=== PATIENT | female | born 1995 | race Caucasian/White ===

== ENCOUNTER 2016-10-30 14:18 | Emergency (ER) | payer OTHER ==
[~2016-10-30] VITALS: Ht 157.5 cm; Wt 72.2 kg
[~2016-10-30 14:18] MED LIST: DROS3TAB PO; FLUO10CA48 PO; PRLSR20 PO
[2016-10-30 14:21] VITALS: TEMP 36.4; Ht 157.5 cm; Wt 72.2 kg
[2016-10-30] MEDS ORDERED: SODIUM CHLORIDE 0.9% 1000ML 500 ML IV STA (14:36)
[2016-10-30] MEDS ORDERED: PROMETHAZINE HCL INJ 25 MG/ML 1 ML VIAL IV STA (14:36)
[2016-10-30] MEDS ORDERED: SODIUM CHLORIDE 0.9% 1000ML 1,000 ML IV STA (14:36)
[2016-10-30] MEDS ORDERED: KETOROLAC TROMETHAMINE 30 MG/ML VIAL IV STA (14:36)
[2016-10-30] MEDS ORDERED: MoRPHine SULFATE 4 MG/ML 1 ML CARP\\VIAL IV PRN (14:45)
--- NOTE | 2016-10-30 14:52 | EMERGENCY ROOM VISIT NOTE ---
History Report prepared by Марина: Stephon Aranda Under the Supervision of: Dr. Francisco Birmingham M.D. First contact with patient: 14:33 Chief Complaint: ABDOMINAL PAIN Stated Complaint: BELLY PAIN Nursing Triage Summary: Pt reports right lower abd pain. Pt presents to triage holding a bag of frozen peas on the area. Had an endoscopy earlier today to have gall bladder evaluated. Nausea. States she woke up with some cramping pain, but pain worsened after returning home from endoscopy. Pt denies vaginal bleeding/discharge. History of Present Illness The patient is a 20 year old female who presents to the Emergency Room with complaints of constant right abdominal pain beginning an hour ago. The patient state her pain starts central and then radiated to the outside. She reports that she woke from an endoscopy earlier today and had cramps. The patient notes that she thought the cramps would go away, but they did not. She states that she called her doctor and was told to go to the ED. The patient reports that she had the endoscopy to see if her gallbladder was okay because certain foods cause her discomfort. She notes that she had an ultrasound of the gallbladder that was negative for stones. The patient states that she has a history of kidney stones, but this does not feel like her past cases. She reports that she does not have a history of previous abdominal surgeries. The patient notes that lying flat worsens her symptoms. She states that she has been coughing and has had congestion for a while. The patient reports that she had hematuria a couple days ago but thought it was associated with the cherries she ate. She notes that she is currently nauseous. The patient denies vomiting, vaginal discharge, chance of , and missed periods. Source of History: patient Onset: hour ago Position: abdomen (RLQ) Timing: constant Modifying Factors (Worsening): other (lying flat) Associated Symptoms: + cough, + nausea, No vomiting Note: Associated symptoms: congestion and hematuria Denies: vaginal discharge, chance of , and missed periods. Review of Systems See HPI for pertinent positives & negatives. A total of 10 systems reviewed and were otherwise negative. Past Medical & Surgical Medical Problems: (1) UTI (urinary tract infection) Family History Cancer Diabetes mellitus FH: heart disease FHx: lung disease Hypertension Social History Smoking Status: Never Smoker Alcohol Use: none Drug Use: none Marital Status: in relationship Housing Status: lives with significant other Occupation Status: student Current/Historical Medications Scheduled Cetirizine (Zyrtec), 10 MG PO DAILY Iud's (Paragard Intrauterine Conservation Science Teacher), 1 DOSE INT UTER DIRECTED Ondasetron Odt (Zofran Odt), 4 MG SL Q6H Pantoprazole (Protonix), 40 MG PO DAILY Sertraline (Zoloft), 25 MG PO DAILY Tamsulosin Hcl (Flomax), 0.4 MG PO DAILY Scheduled PRN Fluticasone Propionate (Nasal) (Flonase Allergy Relief), 1 SPRAY GRISEL DAILY PRN for PRN Oxycodone Ir (Roxicodone Ir), 1-2 TAB PO Q4H PRN for Pain Allergies Coded Allergies: Pineapple (Verified Allergy, Mild, TONGUE ITCHING/BURNING, 10/30/16) Latex (Verified Allergy, Unknown, Rash/swelling, 10/30/16) Penicillins (Verified Allergy, Unknown, 10/30/16) Doxycycline (Verified Adverse Reaction, Intermediate, N/V, 10/30/16) Physical Exam Vital Signs Date Time Temp Pulse Resp B/P (MAP) Pulse Ox O2 Delivery O2 Flow Rate FiO2 10/30/16 17:06 88 20 115/62 98 10/30/16 16:50 88 20 115/62 98 Room Air 10/30/16 14:21 36.4 92 16 123/83 100 Room Air Physical Exam GENERAL: Moderate distress, tearful, seems to be in pain. HEENT: No acute trauma, normocephalic atraumatic, mucous membranes moist, no nasal congestion, no scleral icterus. NECK: No stridor, no adenopathy, no meningismus, trachea is midline. LUNGS: Clear to auscultation bilaterally, no wheeze, no rhonchi, breath sounds equal. HEART: Without murmurs gallops or rubs, regular rate and rhythm. ABDOMEN: Tender along the entire right side, primarily the right lower quadrant , bowel sounds positive, no hernias, no peritonitis. BACK: Right flank discomfort with percussion EXTREMITIES: No cyanosis or edema, full range of motion of all the joints without pain or difficulty, no signs for acute trauma. NEUROLOGIC: Oriented x 3, no acute motor or sensory deficits, no focal weakness. SKIN: No rash, no jaundice, no diaphoresis. Medical Decision & Procedures ER Provider Diagnostic Interpretation: Radiology results as stated below per my review and radiologist interpretation: ABD/PELVIS WITHOUT FOR STONE CT DOSE: 640.86 mGy.cm HISTORY: Flank pain. Hematuria. EVALUATE FLANK PAIN/HEMATURIA--check appendix also TECHNIQUE: Multiaxial CT images of the abdomen and pelvis were performed without the use of intravenous and oral contrast according to the standard department stone protocol. COMPARISON STUDY: 11/21/2012 FINDINGS: Lung bases are clear. Liver spleen and pancreas are unremarkable. There are findings of right renal hydronephrosis. There is a 4 mm obstructing calculus at the right ureteropelvic junction. The distal aspect of the right ureter is unremarkable. No additional calcifications are identified. Bladder is midline. Bowel pattern overall is nonobstructive. The appendix is normal. There is an intrauterine device within the central uterine canal. There may be small bilateral ovarian follicular cysts. IMPRESSION: 1. Obstructing calculus measuring 4 mm proximal right ureter at the right ureteropelvic junction. 2. Moderate right-hydronephrosis. 3. Unchanging right renal cyst. 4. Normal appendix. The above report was generated using voice recognition software. It may contain grammatical, syntax or spelling errors. Electronically signed by: Alin Goodwin M.D. 10/30/2016 3:56 PM Dictated Date/Time: 10/30/2016 3:54 PM CHEST ONE VIEW PORTABLE HISTORY: 20 years Female acute diffuse abdominal pain COMPARISON: Chest and abdomen radiographs 12/17/2009 TECHNIQUE: Portable upright AP view of the chest FINDINGS: Cardiomediastinal and hilar silhouettes are within normal limits. No pneumothorax, pleural effusion or focal airspace consolidation. Bones are grossly intact. IMPRESSION: No acute cardiopulmonary process. The above report was generated using voice recognition software. It may contain grammatical, syntax or spelling errors. Electronically signed by: Indio Nye M.D. 10/30/2016 3:03 PM Dictated Date/Time: 10/30/2016 3:01 PM Laboratory Results 10/30/16 15:05 Red Blood Count 5.04, Mean Corpuscular Volume 84.1, Mean Corpuscular Hemoglobin 28.0, Mean Corpuscular Hemoglobin Concent 33.3, Mean Platelet Volume 9.4, Neutrophils (%) (Auto) 77.0, Lymphocytes (%) (Auto) 16.6, Monocytes (%) (Auto) 5.0, Eosinophils (%) (Auto) 0.6, Basophils (%) (Auto) 0.3, Neutrophils # (Auto) 7.83, Lymphocytes # (Auto) 1.69, Monocytes # (Auto) 0.51, Eosinophils # (Auto) 0.06, Basophils # (Auto) 0.03 10/30/16 15:05 Test 10/30/16 15:05 10/30/16 15:32 White Blood Count 10.17 K/uL (4.8-10.8) Red Blood Count 5.04 M/uL (4.2-5.4) Hemoglobin 14.1 g/dL (12.0-16.0) Hematocrit 42.4 % (37-47) Mean Corpuscular Volume 84.1 fL (80-100) Mean Corpuscular Hemoglobin 28.0 pg (25-34) Mean Corpuscular Hemoglobin Concent 33.3 g/dl (32-36) Platelet Count 275 K/uL (130-400) Mean Platelet Volume 9.4 fL (7.4-10.4) Neutrophils (%) (Auto) 77.0 % Lymphocytes (%) (Auto) 16.6 % Monocytes (%) (Auto) 5.0 % Eosinophils (%) (Auto) 0.6 % Basophils (%) (Auto) 0.3 % Neutrophils # (Auto) 7.83 K/uL (1.4-6.5) Lymphocytes # (Auto) 1.69 K/uL (1.2-3.4) Monocytes # (Auto) 0.51 K/uL (0.11-0.59) Eosinophils # (Auto) 0.06 K/uL (0-0.5) Basophils # (Auto) 0.03 K/uL (0-0.2) RDW Standard Deviation 38.0 fL (36.4-46.3) RDW Coefficient of Variation 12.4 % (11.5-14.5) Immature Granulocyte % (Auto) 0.5 % Immature Granulocyte # (Auto) 0.05 K/uL (0.00-0.02) Anion Gap 6.0 mmol/L (3-11) Est Creatinine Clear Calc Drug Dose 92.0 ml/min Estimated GFR () 105.9 Estimated GFR (Non- 91.4 BUN/Creatinine Ratio 12.6 (10-20) Calcium Level 8.8 mg/dl (8.5-10.1) Total Bilirubin 0.8 mg/dl (0.2-1) Aspartate Amino Transf (AST/SGOT) 11 U/L (15-37) Alanine Aminotransferase (ALT/SGPT) 18 U/L (12-78) Alkaline Phosphatase 65 U/L (45-117) Total Protein 7.4 gm/dl (6.4-8.2) Albumin 4.0 gm/dl (3.4-5.0) Globulin 3.4 gm/dl (2.5-4.0) Albumin/Globulin Ratio 1.2 (0.9-2) Lipase 96 U/L (73-393) Human Chorionic Gonadotropin, Qual NEG (NEG) Urine Color YELLOW Urine Appearance TURBID (CLEAR) Urine pH 7.5 (4.5-7.5) Urine Specific [place] 1.029 (1.000-1.030) Urine Protein 1+ (NEG) Urine Glucose (UA) NEG (NEG) Urine Ketones 1+ (NEG) Urine Occult Blood 3+ (NEG) Urine Nitrite NEG (NEG) Urine Bilirubin NEG (NEG) Urine Urobilinogen NEG (NEG) Urine Leukocyte Esterase MODERATE (NEG) Urine WBC (Auto) >30 /hpf (0-5) Urine RBC (Auto) >30 /hpf (0-4) Urine Hyaline Casts (Auto) 5-10 /lpf (0-5) Urine Epithelial Cells (Auto) >30 /lpf (0-5) Urine Bacteria (Auto) 2+ (NEG) Urine Pathogenic Casts /lpf (0) Laboratory results reviewed by me. Medications Administered Medications (Trade) Dose Ordered Sig/Marielena Route Start Time Stop Time Status Last Admin Dose Admin Sodium Chloride 500 ml @ 999 mls/hr Q31M STAT IV 10/30/16 14:36 10/30/16 15:06 DC 10/30/16 15:28 999 MLS/HR Sodium Chloride 1,000 ml @ 200 mls/hr Q5H STAT IV 10/30/16 14:36 10/30/16 17:43 DC 10/30/16 14:36 200 MLS/HR Morphine Sulfate (MoRPHine SULFATE INJ) 4 mg Q30M PRN IV 10/30/16 14:45 10/30/16 17:43 DC 10/30/16 15:30 4 MG Ketorolac Tromethamine (Toradol Inj) 30 mg NOW STAT IV 10/30/16 14:36 10/30/16 14:42 DC 10/30/16 15:29 30 MG Promethazine HCl 12.5 mg/Sodium Chloride 50.5 ml @ 202 mls/hr NOW STAT IV 10/30/16 15:28 10/30/16 15:42 DC 10/30/16 15:46 202 MLS/HR ED Course 1433: The patient was evaluated in room C09. A complete history and physical exam was performed. 1436: Ordered Toradol Inj 30 mg IV, Sodium Chloride 1000 ml @ 200 mls/hr IV, Phenergan Inj 12.5 mg IV, Sodium Chloride 500 ml @ 999 mls/hr IV 1445: Ordered Morphine Sulfate 4 mg IV 1528: Ordered Promethazine HCl 12.5 mg/Sodium Chloride 50.5 ml @ 202 mls/hr IV 1638: Reevaluated the patient. Discussed results and discharge instructions: she verbalized understanding and agreement. The patient is ready for discharge. Medical Decision Differential diagnosis includes: renal colic, bowel perforation, intestinal spasm, biliary colic, pancreatitis, UTI, hernia, , ovarian cyst There is no leukocytosis or concerning anemia. No significant electrolyte abnormality, kidney failure, hepatitis or pancreatitis. testing is negative. Urinalysis shows hematuria and contamination versus infection, urine culture is pending. Chest film does not show pneumonia or free air. Abdominal and pelvis CT does not show any bowel perforation. There is no bowel obstruction. Right hydronephrosis from a right ureteral stone was noted. The patient received IV saline, IV Phenergan, IV morphine and IV Toradol, she feels improved. The patient is suffering from acute renal colic. This explains her pain. She is now improved, she is being discharged home to strain her urine. Flomax, oxycodone, Motrin, fluids were encouraged. She can return here for worsening symptoms or if not improving. She may need to see urology if not passing the stone. [place] Drug Monitoring Program Search Results: patient reviewed within database, no issues identified Impression Primary Impression: Renal colic Additional Impression: Hematuria Scribe Attestation The scribe's documentation has been prepared under my direction and personally reviewed by me in its entirety. I confirm that the note above accurately reflects all work, treatment, procedures, and medical decision making performed by me. Departure Information Dispostion Home / Self-Care Prescriptions Tamsulosin Hcl (FLOMAX) 0.4 Mg Cap 0.4 MG PO DAILY, #10 CAP Prov: Francisco Birmingham M.D. 10/30/16 Ondasetron Odt (ZOFRAN ODT) 4 Mg Tab 4 MG SL Q6H for Nausea, #15 TAB Prov: Francisco Birmingham M.D. 10/30/16 Oxycodone Ir (Roxicodone Ir) 5 Mg Tab 1-2 TAB PO Q4H Y for Pain, #15 TAB Prov: Francisco Birmingham M.D. 10/30/16 Referrals Suhail Coppola M.D. (MEDICAL) Leah Solorzano, DO Forms HOME CARE DOCUMENTATION FORM, IMPORTANT VISIT INFORMATION Patient Instructions My [facility] Additional Instructions stay well hydrated motrin for pain oxy ir 1-2 tab every 4 hours for severe pain zofran 1 tab every 6 hours for nausea flomax daily to aid in stone passage return for fever, vomiting or uncontrolled pain follow with [facility] md as you may need to see urology if not passing the stone Problem Qualifiers
--- NOTE | 2016-10-30 15:04 | DIAGNOSTIC IMAGING REPORT ---
CHEST ONE VIEW PORTABLE HISTORY: 20 years Female acute diffuse abdominal pain COMPARISON: Chest and abdomen radiographs 12/17/2009 TECHNIQUE: Portable upright AP view of the chest FINDINGS: Cardiomediastinal and hilar silhouettes are within normal limits. No pneumothorax, pleural effusion or focal airspace consolidation. Bones are grossly intact. IMPRESSION: No acute cardiopulmonary process. The above report was generated using voice recognition software. It may contain grammatical, syntax or spelling errors. Electronically signed by: Indio Nye M.D. 10/30/2016 3:03 PM Dictated Date/Time: 10/30/2016 3:01 PM
[2016-10-30] MEDS ORDERED: FLUT0.15 NAE (15:25)
[2016-10-30] MEDS ORDERED: CETI10TA84 PO (15:25)
[2016-10-30] MEDS ORDERED: IUD'IUD INT UTER (15:25)
[2016-10-30] MEDS ORDERED: SERT25TA PO (15:25)
[2016-10-30] MEDS ORDERED: PANT40TA PO (15:25)
[2016-10-30 15:27] LABS: BASO % 0.3 %; BASO ABS # 0.03 K/uL (0-0.2); COMPLETE YES; EOS % 0.6 %; HEMATOCRIT 42.4 % (37-47); IG% 0.5 %; LYMPH % 16.6 %; LYMPH ABS # 1.69 K/uL (1.2-3.4); MEAN CELL VOLUME 84.1 fL (80-100); MEAN CORPUSCULAR HGB CONC 33.3 g/dl (32-36); MEAN PLATELET VOLUME 9.4 fL (7.4-10.4); PLATELET COUNT 275 K/uL (130-400); RED BLOOD COUNT 5.04 M/uL (4.2-5.4); WHITE BLOOD COUNT 10.17 K/uL (4.8-10.8)
[2016-10-30] MEDS ORDERED: PROMETHAZINE HCL INJ 12.5 MG in SODIUM CHLORIDE 0.9% 50ML 50 ML IV STA (15:28)
[2016-10-30 15:47] LABS: PREG INTERNAL NEGATIVE QC NEG CLEAR BACKGROUND; PREG INTERNAL POSITIVE QC POS CONTROL LINE
[2016-10-30 15:48] LABS: BUN/CREATININE RATIO 12.6 (10-20); CALCIUM 8.8 mg/dl (8.5-10.1); CREATININE 0.9 mg/dl (0.60-1.20); POTASSIUM 3.8 mmol/L (3.5-5.1)
[2016-10-30 15:51] LABS: ALB/GLOB RATIO 1.2 (0.9-2)
--- NOTE | 2016-10-30 15:58 | DIAGNOSTIC IMAGING REPORT ---
ABD/PELVIS WITHOUT FOR STONE CT DOSE: 640.86 mGy.cm HISTORY: Flank pain. Hematuria. EVALUATE FLANK PAIN/HEMATURIA--check appendix also TECHNIQUE: Multiaxial CT images of the abdomen and pelvis were performed without the use of intravenous and oral contrast according to the standard department stone protocol. COMPARISON STUDY: 11/21/2012 FINDINGS: Lung bases are clear. Liver spleen and pancreas are unremarkable. There are findings of right renal hydronephrosis. There is a 4 mm obstructing calculus at the right ureteropelvic junction. The distal aspect of the right ureter is unremarkable. No additional calcifications are identified. Bladder is midline. Bowel pattern overall is nonobstructive. The appendix is normal. There is an intrauterine device within the central uterine canal. There may be small bilateral ovarian follicular cysts. IMPRESSION: 1. Obstructing calculus measuring 4 mm proximal right ureter at the right ureteropelvic junction. 2. Moderate right-hydronephrosis. 3. Unchanging right renal cyst. 4. Normal appendix. The above report was generated using voice recognition software. It may contain grammatical, syntax or spelling errors. Electronically signed by: Alin Goodwin M.D. 10/30/2016 3:56 PM Dictated Date/Time: 10/30/2016 3:54 PM
[2016-10-30 15:59] LABS: URINE APPEARANCE TURBID (CLEAR); URINE BILIRUBIN NEG (NEG); URINE COLOR YELLOW; URINE EPITHELIAL CELL AUTO >30 /lpf (0-5); URINE NITRITE NEG (NEG); URINE PH 7.5 (4.5-7.5); URINE SPECIFIC GRAVITY 1.029 (1.000-1.030); UROBILINOGEN NEG (NEG); ZZUR CULT IF INDIC CLEAN CATCH YES
[2016-10-30 16:02] LABS: MANUAL MICROSCOPIC REQUIRED? NO; REVIEW REQ? YES
[2016-10-30 16:11] LABS: SULFASALICYLIC ACID POS (NEG)
[2016-10-30] MEDS ORDERED: ONDA4TAB10 SL (16:43)
[2016-10-30] MEDS ORDERED: TAMS0.4C38 PO (16:43)
[2016-10-30] MEDS ORDERED: OXYC1TAB3 PO (16:43)
[2016-10-30 17:06] VITALS: BP 115/62; PULSE 88; O2SAT 98
== END 2016-10-30 17:06 | disposition home or self-care (01) ==
LOC: C.EDB 14:19 → C.EDC 17:06
DX: N13.2 Hydronephrosis with renal and ureteral calculous obstruction (principal); N28.1 Cyst of kidney, acquired; Z79.899 Other long term (current) drug therapy

== ENCOUNTER 2017-03-12 01:31 | Emergency (ER) | payer SELFPAY ==
[~2017-03-12] VITALS: Ht 157.5 cm; Wt 71.6 kg
[~2017-03-12 01:31] MED LIST changes: +CETI10TA84 PO; -DROS3TAB PO; -FLUO10CA48 PO; +FLUT0.15 NAE; +IUD'IUD INT UTER; +ONDA4TAB10 SL; +OXYC1TAB3 PO; +PANT40TA PO; -PRLSR20 PO; +SERT25TA PO
[2017-03-12 01:45] VITALS: TEMP 36.8; Ht 157.5 cm; Wt 71.6 kg
[2017-03-12] MEDS ORDERED: KETOROLAC TROMETHAMINE 15 MG/ML VIAL IV STA (02:10)
[2017-03-12] MEDS ORDERED: KETOROLAC TROMETHAMINE 30 MG/ML VIAL ONE (02:15)
[2017-03-12 02:28] LABS: BASO % 0.6 %; BASO ABS # 0.06 K/uL (0-0.2); COMPLETE YES; EOS % 2.7 %; HEMATOCRIT 40.9 % (37-47); IG% 0.4 %; LYMPH % 35.4 %; LYMPH ABS # 3.62 K/uL (1.2-3.4); MEAN CELL VOLUME 86.7 fL (80-100); MEAN CORPUSCULAR HGB CONC 33.5 g/dl (32-36); MEAN PLATELET VOLUME 9.6 fL (7.4-10.4); MONO % 7.9 %; PLATELET COUNT 319 K/uL (130-400); RED BLOOD COUNT 4.72 M/uL (4.2-5.4); WHITE BLOOD COUNT 10.23 K/uL (4.8-10.8)
[2017-03-12 02:33] LABS: MANUAL MICROSCOPIC REQUIRED? YES; REVIEW REQ? NO; SULFASALICYLIC ACID NEG (NEG); URINE APPEARANCE SLIGHTLY CLOUDY (CLEAR); URINE COLOR ORANGE; URINE SPECIFIC GRAVITY 1.021 (1.000-1.030)
[2017-03-12 02:37] LABS: URINE MUCUS PRESENT (NONE PRSENT)
[2017-03-12 02:38] LABS: URINE BACTERIA 1+ (NEG); ZZUR CULT IF INDIC CLEAN CATCH YES
[2017-03-12 02:39] LABS: PREG INTERNAL NEGATIVE QC NEG CLEAR BACKGROUND; PREG INTERNAL POSITIVE QC POS CONTROL LINE
[2017-03-12 02:53] LABS: BUN/CREATININE RATIO 11.4 (10-20); CREATININE 1.05 mg/dl (0.60-1.20); POTASSIUM 3.5 mmol/L (3.5-5.1)
[2017-03-12 02:56] LABS: ALB/GLOB RATIO 1.1 (0.9-2)
[2017-03-12] MEDS ORDERED: MoRPHine SULFATE 4 MG/ML 1 ML CARP\\VIAL IV STA (03:16)
--- NOTE | 2017-03-12 04:15 | EMERGENCY ROOM VISIT NOTE ---
History First contact with patient: 01:53 Chief Complaint: FLANK PAIN Stated Complaint: PAIN IN SIDE, UTI History of Present Illness The patient is a 21 year old female who presents to the Emergency Room with complaints of right flank pain. The patient states that she has had pain in her urethra and increased frequency of urination for the past 3 weeks. She states that this evening, she has developed a sharp pain in the right upper back with radiation into the right abdomen and groin. She rates her discomfort a 7/10. She reports associated nausea without vomiting. She reports a history of kidney stones and is unsure if this feels similar. She has not taken anything at home for pain. She denies fevers/chills or changes in bowel movements. Review of Systems A complete 10 point review of systems was reviewed with the patient with pertinent positives and negatives as per history of present illness. All else were negative. Past Medical/Surgical History Medical Problems: (1) UTI (urinary tract infection) Family History Cancer Diabetes mellitus FH: heart disease FHx: lung disease Hypertension Social History Smoking Status: Never Smoker Alcohol Use: none Drug Use: none Marital Status: in relationship Housing Status: lives with significant other Occupation Status: student Current/Historical Medications Scheduled Ciprofloxacin Hcl (Cipro), 500 MG PO BID Ondasetron Odt (Zofran Odt), 4 MG SL Q6H Physical Exam Vital Signs Date Time Temp Pulse Resp B/P (MAP) Pulse Ox O2 Delivery O2 Flow Rate FiO2 03/12/17 06:02 76 18 108/66 97 03/12/17 04:25 76 18 124/72 96 Room Air 03/12/17 03:28 82 20 132/78 98 Room Air 03/12/17 01:45 36.8 90 18 141/96 100 Room Air Physical Exam VITALS: Vitals are noted on the nurse's note and reviewed by myself. Vital signs stable. GENERAL: This is a 21-year-old female, in no acute distress, nondiaphoretic, well-developed well-nourished. EARS: External auditory canals clear, tympanic membranes pearly velasco without erythema or effusion bilaterally. EYES: Pupils equal round and reactive to light and accommodation. MOUTH: Mucous membranes moist. HEART: Regular rate and rhythm without murmurs gallops or rubs. LUNGS: Clear to auscultation bilaterally without wheezes, rales or rhonchi. ABDOMEN: Positive bowel sounds x 4. Mild tenderness in the right lower quadrant. Right CVA tenderness. No guarding or rebound tenderness. NEURO: Patient was alert and oriented to person place and time. Medical Decision & Procedures ER Provider Diagnostic Interpretation: US RENAL: Moderate right hydronephrosis 2.2 cm right renal cyst Small perinephric edema noted Bladder is mostly collapsed Bilateral ureteral jets noted, appears greater on the left No left hydronephrosis Radiologist: Isidro Foreman MD Laboratory Results 03/12/17 01:58 Red Blood Count 4.72, Mean Corpuscular Volume 86.7, Mean Corpuscular Hemoglobin 29.0, Mean Corpuscular Hemoglobin Concent 33.5, Mean Platelet Volume 9.6, Neutrophils (%) (Auto) 53.0, Lymphocytes (%) (Auto) 35.4, Monocytes (%) (Auto) 7.9, Eosinophils (%) (Auto) 2.7, Basophils (%) (Auto) 0.6, Neutrophils # (Auto) 5.42, Lymphocytes # (Auto) 3.62, Monocytes # (Auto) 0.81, Eosinophils # (Auto) 0.28, Basophils # (Auto) 0.06 03/12/17 01:58 Test 03/12/17 01:58 03/12/17 02:07 White Blood Count 10.23 K/uL (4.8-10.8) Red Blood Count 4.72 M/uL (4.2-5.4) Hemoglobin 13.7 g/dL (12.0-16.0) Hematocrit 40.9 % (37-47) Mean Corpuscular Volume 86.7 fL (80-100) Mean Corpuscular Hemoglobin 29.0 pg (25-34) Mean Corpuscular Hemoglobin Concent 33.5 g/dl (32-36) Platelet Count 319 K/uL (130-400) Mean Platelet Volume 9.6 fL (7.4-10.4) Neutrophils (%) (Auto) 53.0 % Lymphocytes (%) (Auto) 35.4 % Monocytes (%) (Auto) 7.9 % Eosinophils (%) (Auto) 2.7 % Basophils (%) (Auto) 0.6 % Neutrophils # (Auto) 5.42 K/uL (1.4-6.5) Lymphocytes # (Auto) 3.62 K/uL (1.2-3.4) Monocytes # (Auto) 0.81 K/uL (0.11-0.59) Eosinophils # (Auto) 0.28 K/uL (0-0.5) Basophils # (Auto) 0.06 K/uL (0-0.2) RDW Standard Deviation 39.6 fL (36.4-46.3) RDW Coefficient of Variation 12.4 % (11.5-14.5) Immature Granulocyte % (Auto) 0.4 % Immature Granulocyte # (Auto) 0.04 K/uL (0.00-0.02) Urine Color ORANGE Urine Appearance SLIGHTLY CLOUDY (CLEAR) Urine pH (4.5-7.5) Urine Specific [place] 1.021 (1.000-1.030) Urine Protein NEG (NEG) Urine Glucose (UA) (NEG) Urine Ketones (NEG) Urine Occult Blood (NEG) Urine Nitrite (NEG) Urine Bilirubin (NEG) Urine Urobilinogen (NEG) Urine Leukocyte Esterase (NEG) Urine RBC 10-30 /hpf (0-4) Urine WBC 5-10 /hpf (0-5) Urine Epithelial Cells >30 /lpf (0-5) Urine Bacteria 1+ (NEG) Urine Mucus PRESENT (NONE PRSENT) Anion Gap 5.0 mmol/L (3-11) Est Creatinine Clear Calc Drug Dose 77.9 ml/min Estimated GFR () 87.3 Estimated GFR (Non- 75.3 BUN/Creatinine Ratio 11.4 (10-20) Calcium Level 9.0 mg/dl (8.5-10.1) Total Bilirubin 0.9 mg/dl (0.2-1) Aspartate Amino Transf (AST/SGOT) 9 U/L (15-37) Alanine Aminotransferase (ALT/SGPT) 17 U/L (12-78) Alkaline Phosphatase 74 U/L (45-117) Total Protein 7.9 gm/dl (6.4-8.2) Albumin 4.2 gm/dl (3.4-5.0) Globulin 3.7 gm/dl (2.5-4.0) Albumin/Globulin Ratio 1.1 (0.9-2) Lipase 126 U/L (73-393) Urine Test NEG (NEG) Medications Administered Medications (Trade) Dose Ordered Sig/Marielnea Route Start Time Stop Time Status Last Admin Dose Admin Ketorolac Tromethamine (Toradol Inj) 30 mg STK-MED ONCE .ROUTE 03/12/17 02:15 03/12/17 02:16 DC 03/12/17 02:16 30 MG Morphine Sulfate (MoRPHine SULFATE INJ) 4 mg NOW STAT IV 03/12/17 03:16 03/12/17 03:17 DC 03/12/17 03:27 4 MG Ceftriaxone Sodium (Rocephin Inj) 1 gm NOW STAT IV 03/12/17 05:08 03/12/17 05:15 DC 03/12/17 05:25 1 GM Ciprofloxacin (Cipro Tab) 500 mg NOW STAT PO 03/12/17 05:08 03/12/17 05:15 DC 03/12/17 05:58 500 MG Ondansetron HCl (Zofran Inj) 4 mg NOW STAT IV 03/12/17 05:27 03/12/17 05:28 DC 03/12/17 05:38 4 MG Medical Decision Differential diagnosis includes UTI, pyelonephritis, bowel obstruction, cholecystitis, among others. The patient is a 21-year-old female who presents today complaining of flank pain and urinary symptoms. Labs were unremarkable. Urinalysis was suggestive of infection. Urine was negative. Ultrasound showed hydronephrosis possible consistent with pyelo. Patient is not febrile. She has not been vomiting. She was given Rocephin and will be given cipro pending culture. She will follow up with her PCP. Based on the patient's presentation and work up, I feel the patient is stable for outpatient treatment. The patient was educated to return to the emergency department for any worsening of their current condition or new/concerning symptoms. She will follow up with her PCP. Medication Reconcilliation Current Medication List: was personally reviewed by me Blood Pressure Screening Patient's blood pressure: Normal blood pressure Impression Primary Impression: UTI (urinary tract infection) Departure Information Dispostion Home / Self-Care Condition GOOD Prescriptions Ondasetron Odt (ZOFRAN ODT) 4 Mg Tab 4 MG SL Q6H for Nausea, #15 TAB Prov: Gricelda Jerez PA-C 03/12/17 Ciprofloxacin Hcl (CIPRO) 500 Mg Tab 500 MG PO BID for 10 Days, #20 TAB Prov: Gricelda Jerez PA-C 03/12/17 Referrals Suhail Coppola M.D. (MEDICAL) (PCP) Patient Instructions My [facility] Additional Instructions You have been treated in the Emergency Department for a Urinary Tract Infection (UTI). You have been prescribed ciprofloxacin to be taken twice daily as prescribed. This is an antibiotic. All antibiotics have the potential to cause diarrhea. Stop this medication and contact a medical provider if you were to develop any significant adverse side effects including: wheezing, shortness of breath, passing out, vomiting, or a diffuse rash. Always take antibiotics as directed and COMPLETE the ENTIRE course regardless of the improvement of your symptoms. You have been prescribed Zofran to be used for any nausea or vomiting. Take as prescribed. Drink plenty of water and stay well hydrated. As with any trip to the Emergency Department, you should follow-up with your Primary Care Provider from today's visit. Return to the emergency department if your symptoms persist despite treatment plan outlined above or if the following symptoms occur: increased fevers, chills , low back pain, nausea/vomiting, or blood in your urine. Problem Qualifiers Primary Impression: UTI (urinary tract infection) Urinary tract infection type: acute pyelonephritis Qualified Codes: N10 - Acute pyelonephritis
[2017-03-12] MEDS ORDERED: CIPROFLOXACIN 500 MG TAB PO STA (05:08)
[2017-03-12] MEDS ORDERED: CEFTRIAXONE SOD INJ 1 GM ADDVIAL IV STA (05:08)
[2017-03-12] MEDS ORDERED: ONDANSETRON INJ 2 MG/ML 2 ML VIAL IV STA (05:27)
[2017-03-12] MEDS ORDERED: ONDA4TAB10 SL (05:27)
[2017-03-12] MEDS ORDERED: CIPR-255 PO (05:27)
[2017-03-12 06:02] VITALS: BP 108/66; PULSE 76; O2SAT 97
--- NOTE | 2017-03-12 06:56 | DIAGNOSTIC IMAGING REPORT ---
(RENAL)RETROPERITON COMP HISTORY: 21 years-old Female right flank pain, urinary sxs acute right-sided flank pain with dysuria, hematuria and urinary frequency COMPARISON: CT abdomen and pelvis 10/30/2016 TECHNIQUE: Multiple real-time sonographic images of the kidneys and urinary bladder were obtained assessing grayscale appearance and color flow FINDINGS: The right kidney measures 10.1 x 6.1 x 4.0 cm. There is moderate right-sided hydronephrosis with dilation of the imaged right renal pelvis and proximal ureter as well. Simple cyst of the interpolar right kidney measures 2.2 cm. Mild perinephric edema on the right. No obstructing stone or mass is identified. The left kidney measures 9.3 x 4.7 x 4.2 cm and is unremarkable without renal calculi or hydronephrosis. Urinary bladder is mostly collapsed with bilateral ureteral jets documented, left greater than right. There is a mild amount of mobile debris within the urinary bladder. IMPRESSION: 1. Moderate right-sided hydronephrosis without obstructing stone or mass identified on this study. Distal ureteral obstructing calculus is a differential consideration which could be further evaluated with CT. 2. Partially collapsed urinary bladder with bilateral ureteral jets documented, left greater than right. Mobile debris within the urinary bladder also noted. Correlate with urinalysis. 3. Unremarkable sonographic appearance of the left kidney. The above report was generated using voice recognition software. It may contain grammatical, syntax or spelling errors. Electronically signed by: Indio Nye M.D. 03/12/2017 6:55 AM Dictated Date/Time: 03/12/2017 6:51 AM
== END 2017-03-12 06:02 | disposition home or self-care (01) ==
LOC: C.EDB 01:33
DX: N39.0 Urinary tract infection, site not specified (principal); N13.30 Unspecified hydronephrosis; Z87.442 Personal history of urinary calculi; Z83.3 Family history of diabetes mellitus; Z82.49 Family history of ischemic heart disease and other diseases of the circulatory system

== ENCOUNTER 2017-03-24 16:57 | Emergency (ER) | payer SELFPAY ==
[~2017-03-24] VITALS: Ht 157.5 cm; Wt 72.5 kg
[~2017-03-24 16:57] MED LIST changes: +BCPILLS PO; -CETI10TA84 PO; +CIPR-255 PO; +DTR5 PO; +FLM4 PO; -FLUT0.15 NAE; +IBUP600T44 PO; -IUD'IUD INT UTER; -ONDA4TAB10 SL; -OXYC1TAB3 PO; -PANT40TA PO; +PHEN-1043 PO; -SERT25TA PO
[2017-03-24 16:59] VITALS: TEMP 36.7; Ht 157.5 cm; Wt 72.5 kg
[2017-03-24] MEDS ORDERED: MoRPHine SULFATE 10 MG/ML CARP/VIAL IV STA (17:10)
[2017-03-24] MEDS ORDERED: SODIUM CHLORIDE 0.9% 1000ML 1,000 ML IV STA (17:10)
[2017-03-24] MEDS ORDERED: ONDANSETRON INJ 2 MG/ML 2 ML VIAL IV STA (17:10)
--- NOTE | 2017-03-24 17:32 | EMERGENCY ROOM VISIT NOTE ---
History Report prepared by Марина: Jeri Connell Under the Supervision of: Dr. Madison Cagle M.D. First contact with patient: 17:04 Chief Complaint: KIDNEY STONE Stated Complaint: KIDNEY PAIN History of Present Illness The patient is a 21 year old female who presents to the Emergency Room with complaints of worsening lower back pain which radiates to her pelvis beginning this morning. The patient had a ureteral stent on March 22 for a 7mm right distal ureteral calculus. She notes drinking a normal amount of fluids and decreased urine output. The patient also has a right ovarian hemorrhagic cyst. She was discharged from the hospital on Flomax and oxybutynin chloride. She was told to take ibuprofen for her pain. She reports last taking ibuprofen two hours ago with minimal relief. Source of History: patient Onset: 2 days ago Position: back Quality: other (radiates to pelvis) Modifying Factors (Relieving): ibuprofen Associated Symptoms: + urinary symptoms Review of Systems See HPI for pertinent positives & negatives. A total of 10 systems reviewed and were otherwise negative. Past Medical & Surgical Medical Problems: (1) UTI (urinary tract infection) Family History Cancer Diabetes mellitus FH: heart disease FHx: lung disease Hypertension Social History Smoking Status: Never Smoker Alcohol Use: none Drug Use: none Marital Status: in relationship Housing Status: lives with significant other Occupation Status: student Current/Historical Medications Scheduled Control Pills ( Control Pills), 1 TAB PO DAILY Ciprofloxacin Hcl (Cipro), 500 MG PO BID Tamsulosin Hcl (Flomax), 0.4 MG PO HS Scheduled PRN Hydrocodone/Acetaminophen 5MG/325MG ([place] 5MG/325MG), 1 TABLET PO Q6 PRN for Pain Ibuprofen Tab (Motrin), 600 MG PO TID PRN for Pain Oxybutynin Chloride (Ditropan), 5 MG PO Q8 PRN for BLADDER SPASMS Phenazopyridine HCl (Pyridium), 200 MG PO Q8 PRN for URINARY BURNING Allergies Coded Allergies: Pineapple (Verified Allergy, Mild, TONGUE ITCHING/BURNING, 03/24/17) Amoxicillin (Verified Allergy, Unknown, Unknown, 03/24/17) Latex (Verified Allergy, Unknown, Rash/swelling, 03/24/17) Penicillins (Verified Allergy, Unknown, 03/24/17) Doxycycline (Verified Adverse Reaction, Intermediate, N/V, 03/24/17) Physical Exam Vital Signs Date Time Temp Pulse Resp B/P (MAP) Pulse Ox O2 Delivery O2 Flow Rate FiO2 03/24/17 18:33 66 03/24/17 18:32 68 20 112/74 99 Room Air 03/24/17 16:59 36.7 76 18 135/84 96 Room Air Physical Exam Vital signs reviewed. General: Well-appearing female, in no significant distress. HEENT: No scleral icterus, PERRLA, neck supple. Atraumatic. Cardiovascular: Regular rate and rhythm, no extra sounds. Pulmonary: Clear to auscultation bilaterally, normal work of breathing. Abdomen: Soft, nontender, nondistended, positive bowel sounds. Back: Positive right CVA tenderness. Musculoskeletal: Atraumatic, no peripheral edema. Neurologic: Patient awake alert and oriented x 3, full strength in all 4 extremities. Cranial nerves 2 through 12 grossly intact. Skin: Warm, dry, no rash Medical Decision & Procedures ER Provider Diagnostic Interpretation: Radiology results as stated below per my review and radiologist interpretation: KUB FINDINGS: The bowel gas pattern is non-obstructive. There is no organomegaly. Right sided ureteral stent is in place which appears appropriately positioned. There is a linear 5 mm calcification within the right hemipelvis adjacent to the distal portion of the stent suggesting distal right ureteral calculus. Moderate volume of formed colonic noted which may reflect constipation. No pneumoperitoneum or pneumatosis. No fracture. IMPRESSION: 1. Right ureteral stent in place. 2. 5 mm calcification within the right hemipelvis adjacent to the distal portion of the stent suggests persistent distal right ureteral calculus. Electronically signed by: Indio Nye M.D. Laboratory Results 03/24/17 18:10 Red Blood Count 4.57, Mean Corpuscular Volume 86.0, Mean Corpuscular Hemoglobin 28.9, Mean Corpuscular Hemoglobin Concent 33.6, Mean Platelet Volume 9.4, Neutrophils (%) (Auto) 66.9, Lymphocytes (%) (Auto) 20.5, Monocytes (%) (Auto) 8.6, Eosinophils (%) (Auto) 3.3, Basophils (%) (Auto) 0.4, Neutrophils # (Auto) 6.48, Lymphocytes # (Auto) 1.99, Monocytes # (Auto) 0.83, Eosinophils # (Auto) 0.32, Basophils # (Auto) 0.04 03/24/17 18:10 Test 03/24/17 18:10 03/24/17 18:30 White Blood Count 9.69 K/uL (4.8-10.8) Red Blood Count 4.57 M/uL (4.2-5.4) Hemoglobin 13.2 g/dL (12.0-16.0) Hematocrit 39.3 % (37-47) Mean Corpuscular Volume 86.0 fL (80-100) Mean Corpuscular Hemoglobin 28.9 pg (25-34) Mean Corpuscular Hemoglobin Concent 33.6 g/dl (32-36) Platelet Count 274 K/uL (130-400) Mean Platelet Volume 9.4 fL (7.4-10.4) Neutrophils (%) (Auto) 66.9 % Lymphocytes (%) (Auto) 20.5 % Monocytes (%) (Auto) 8.6 % Eosinophils (%) (Auto) 3.3 % Basophils (%) (Auto) 0.4 % Neutrophils # (Auto) 6.48 K/uL (1.4-6.5) Lymphocytes # (Auto) 1.99 K/uL (1.2-3.4) Monocytes # (Auto) 0.83 K/uL (0.11-0.59) Eosinophils # (Auto) 0.32 K/uL (0-0.5) Basophils # (Auto) 0.04 K/uL (0-0.2) RDW Standard Deviation 37.6 fL (36.4-46.3) RDW Coefficient of Variation 12.0 % (11.5-14.5) Immature Granulocyte % (Auto) 0.3 % Immature Granulocyte # (Auto) 0.03 K/uL (0.00-0.02) Anion Gap 7.0 mmol/L (3-11) Est Creatinine Clear Calc Drug Dose 79.1 ml/min Estimated GFR () 88.3 Estimated GFR (Non- 76.2 BUN/Creatinine Ratio 13.0 (10-20) Calcium Level 8.6 mg/dl (8.5-10.1) Total Bilirubin 0.7 mg/dl (0.2-1) Direct Bilirubin 0.1 mg/dl (0-0.2) Aspartate Amino Transf (AST/SGOT) 9 U/L (15-37) Alanine Aminotransferase (ALT/SGPT) 15 U/L (12-78) Alkaline Phosphatase 58 U/L (45-117) Total Protein 7.2 gm/dl (6.4-8.2) Albumin 3.5 gm/dl (3.4-5.0) Urine Color ORANGE Urine Appearance CLOUDY (CLEAR) Urine pH 6.5 (4.5-7.5) Urine Specific Goldsmith 1.012 (1.000-1.030) Urine Protein 2+ (NEG) Urine Glucose (UA) NEG (NEG) Urine Ketones NEG (NEG) Urine Occult Blood 3+ (NEG) Urine Nitrite POS (NEG) Urine Bilirubin NEG (NEG) Urine Urobilinogen NEG (NEG) Urine Leukocyte Esterase MODERATE (NEG) Urine WBC (Auto) 10-30 /hpf (0-5) Urine RBC (Auto) >30 /hpf (0-4) Urine Hyaline Casts (Auto) 1-5 /lpf (0-5) Urine Epithelial Cells (Auto) >30 /lpf (0-5) Urine Bacteria (Auto) NEG (NEG) Laboratory results per my review. Medications Administered Medications (Trade) Dose Ordered Sig/Marielena Route Start Time Stop Time Status Last Admin Dose Admin Ondansetron HCl (Zofran Inj) 4 mg NOW STAT IV 03/24/17 17:10 03/24/17 17:12 DC 03/24/17 18:25 4 MG Sodium Chloride 1,000 ml @ 999 mls/hr Q1H1M STAT IV 03/24/17 17:10 03/24/17 18:10 DC 03/24/17 18:28 999 MLS/HR Morphine Sulfate (MoRPHine SULFATE INJ) 4 mg STK-MED ONCE .ROUTE 03/24/17 18:21 03/24/17 18:22 DC 03/24/17 18:25 4 MG Morphine Sulfate (MoRPHine SULFATE INJ) 2 mg STK-MED ONCE .ROUTE 03/24/17 18:21 03/24/17 18:22 DC 03/24/17 18:24 2 MG ED Course 1706: Past medical records reviewed. The patient was evaluated in room C10. A complete history and physical examination was performed. 1710: Ordered Sodium Chloride 1000 ml @ 999 mls/hr IV, Zofran Inj 4 mg IV, Morphine Sulfate 6 mg IV. 1821: Ordered Morphine Sulfate 2 mg .ROUTE, Morphine Sulfate 4 mg . ROUTE. 1924: I updated the patient on her test results. 2002: Upon reevaluation, the patient appeared to have improvement of her symptoms. I discussed findings with her. She verbalized agreement of the treatment plan. The patient was discharged home. Medical Decision Differential diagnosis: Etiologies such as renal colic, appendicitis, diverticulitis, mesenteric ischemia, aortic pathology, infections, inflammatory bowel disease, PUD, biliary pathology, UTI, as well as others were entertained. Medication Reconcilliation Current Medication List: was personally reviewed by me Blood Pressure Screening Patient's blood pressure: Normal blood pressure Impression Primary Impression: Pain due to ureteral stent Scribe Attestation The scribe's documentation has been prepared under my direction and personally reviewed by me in its entirety. I confirm that the note above accurately reflects all work, treatment, procedures, and medical decision making performed by me. Departure Information Dispostion Home / Self-Care Prescriptions Hydrocodone/Acetaminophen 5MG/325MG ([place] 5MG/325MG) Tab 1 TABLET PO Q6 Y for Pain, #14 TAB Prov: Madison Cagle M.D. 03/24/17 Referrals No Doctor, Assigned (PCP) Forms HOME CARE DOCUMENTATION FORM, IMPORTANT VISIT INFORMATION Patient Instructions My [facility] Additional Instructions Diagnosis: Ureteral stent pain Increase fluids. Ibuprofen 600 mg every 6 hours as needed for pain. [place] 1-2 tablets every 4-6 hrs as needed for worse pain. No driving, working, or alcohol use with [place]. Follow up with your urologist tomorrow for reevaluation. Follow up sooner for fever >101, vomiting, or significant increase in pain not controlled with medication.
[2017-03-24] MEDS ORDERED: PHEN-876 PO (17:33)
[2017-03-24] MEDS ORDERED: DTR/5 PO (17:33)
[2017-03-24] MEDS ORDERED: TAMS0.4C38 PO (17:33)
[2017-03-24] MEDS ORDERED: CIPR-255 PO (17:33)
[2017-03-24] MEDS ORDERED: IBUP-1427 PO (17:33)
[2017-03-24 18:20] LABS: BASO % 0.4 %; BASO ABS # 0.04 K/uL (0-0.2); COMPLETE YES; EOS % 3.3 %; HEMATOCRIT 39.3 % (37-47); IG% 0.3 %; LYMPH % 20.5 %; LYMPH ABS # 1.99 K/uL (1.2-3.4); MEAN CORPUSCULAR HEMOGLOBIN 28.9 pg (25-34); MEAN CORPUSCULAR HGB CONC 33.6 g/dl (32-36); MEAN PLATELET VOLUME 9.4 fL (7.4-10.4); MONO % 8.6 %; NEUT % 66.9 %; PLATELET COUNT 274 K/uL (130-400); RED BLOOD COUNT 4.57 M/uL (4.2-5.4); WHITE BLOOD COUNT 9.69 K/uL (4.8-10.8)
[2017-03-24] MEDS ORDERED: MoRPHine SULFATE 2 MG/ML CARP ONE (18:21)
[2017-03-24] MEDS ORDERED: MoRPHine SULFATE 4 MG/ML 1 ML CARP\\VIAL ONE (18:21)
[2017-03-24 18:42] LABS: CALCIUM 8.6 mg/dl (8.5-10.1); CREATININE 1.04 mg/dl (0.60-1.20); POTASSIUM 3.7 mmol/L (3.5-5.1)
[2017-03-24 18:46] LABS: URINE APPEARANCE CLOUDY (CLEAR); URINE COLOR ORANGE; URINE EPITHELIAL CELL AUTO >30 /lpf (0-5); URINE NITRITE POS (NEG); URINE PH 6.5 (4.5-7.5); URINE SPECIFIC GRAVITY 1.012 (1.000-1.030); UROBILINOGEN NEG (NEG); ZZUR CULT IF INDIC CLEAN CATCH YES
[2017-03-24 18:51] LABS: MANUAL MICROSCOPIC REQUIRED? NO; REVIEW REQ? NO
[2017-03-24 18:54] LABS: URINE BILIRUBIN NEG (NEG)
--- NOTE | 2017-03-24 19:16 | DIAGNOSTIC IMAGING REPORT ---
KUB HISTORY: Right ureteral stent in place with recent urinary tract infection. R ureteral stent COMPARISON: CT abdomen and pelvis 01/19/2017 FINDINGS: The bowel gas pattern is non-obstructive. There is no organomegaly. Right sided ureteral stent is in place which appears appropriately positioned. There is a linear 5 mm calcification within the right hemipelvis adjacent to the distal portion of the stent suggesting distal right ureteral calculus. Moderate volume of formed colonic noted which may reflect constipation. No pneumoperitoneum or pneumatosis. No fracture. IMPRESSION: 1. Right ureteral stent in place. 2. 5 mm calcification within the right hemipelvis adjacent to the distal portion of the stent suggests persistent distal right ureteral calculus. Electronically signed by: Indio Nye M.D. 03/24/2017 7:15 PM Dictated Date/Time: 03/24/2017 7:12 PM
[2017-03-24] MEDS ORDERED: HYDR-5688 PO (19:49)
[2017-03-24] MEDS ORDERED: NORCO 5/325MG HOME PACK PO ONE (20:00)
[2017-03-24 20:10] VITALS: BP 126/78; PULSE 77; O2SAT 98
== END 2017-03-24 20:10 | disposition home or self-care (01) ==
LOC: C.EDB 16:58 → C.EDC 20:10
DX: M54.5 Low back pain (principal); N20.1 Calculus of ureter; N83.201 Unspecified ovarian cyst, right side; Z87.440 Personal history of urinary (tract) infections; Z80.9 Family history of malignant neoplasm, unspecified; Z83.3 Family history of diabetes mellitus; Z82.49 Family history of ischemic heart disease and other diseases of the circulatory system; Z83.6 Family history of other diseases of the respiratory system; Z79.3 Long term (current) use of hormonal contraceptives

== ENCOUNTER → 2017-03-29 | Day surgery (SDC) | payer SELFPAY ==
[2017-03-28 13:36] VITALS: Ht 157.5 cm; Wt 70.0 kg
[~2017-03-29] VITALS: Ht 157.5 cm; Wt 70.0 kg
[~2017-03-29] MED LIST changes: +ACETAMINOPHEN 325 MG TAB PO PRN; +ATROPINE SULFATE 0.1 MG/ML 5ML SYR IV PRN; -CIPR-255 PO; +CIPROFLOXACIN / D5W 400 MG IV SCH; +DEXAMETHASONE SOD INJ 4 MG/ML VIAL ONE; +DTR/5 PO; -DTR5 PO; +FENTANYL CITRATE INJ 50 MCG/1 ML 2 ML VIAL IV PRN; +FENTANYL CITRATE INJ 50 MCG/1 ML 2 ML VIAL ONE; -FLM4 PO; +HYDR-5688 PO; +HYDROCODONE/ACETAMOPHEN 5/325MG TAB PO PRN; +IBUP-1427 PO; -IBUP600T44 PO; +LACTATED RINGER'S 1000ML 1,000 ML IV SCH; +LIDOCAINE HCL 2% 2 ML VIAL (20MG/ML) ONE; +MIDAZOLAM HCL 1 MG/ML 2ML VIAL ONE; +ONDANSETRON INJ 2 MG/ML 2 ML VIAL IV PRN; +ONDANSETRON INJ 2 MG/ML 2 ML VIAL ONE; -PHEN-1043 PO; +PHEN-876 PO; +PROPOFOL IV EMULSION 10 MG/ML 20 ML VIAL IV ONE; +SODIUM CHLORIDE 0.9% 1000ML 1,000 ML IV SCH; +TAMS0.4C38 PO
--- NOTE | 2017-03-29 12:10 | History & Physical Bridge Note ---
H&P Re-Evaluation Bridge Note: I have examined the patient, reviewed the History & Physical and in the interval since the performance of the History & Physical I have noted the following changes of clinical significance: No changes noted
--- NOTE | 2017-03-29 12:44 | Discharge Instructions-SurgCtr ---
Discharge Instructions Date of Service Mar 29, 2017. Visit Reason for Visit: Stones Discharge Discharge Diagnosis / Problem: stones Discharge Goals Goal(s): Decrease discomfort, Improve function, Increase independence, Improve disease control Activity Recommendations Activity Limitations: resume your previous activity Lifting Limitations: none Exercise/Sports Limitations: none May Resume Sexual Activity: when tolerated Shower/Bathe: no limitations Driving or Machine Use: no limitations Anesthesia . Post Anesthesia Instructions: If you have had General Anesthesia or IV Sedation: * Do not drive today. * Resume driving when surgeon permits. * Do not make important decisions or sign legal documents today. * Call surgeon for: 1. Temperature elevations greater than 101 degrees F. 2. Uncontrollable pain. 3. Excessive bleeding. 4. Persistent nausea and vomiting. 5. Medication intolerance (nausea, vomiting or rash). * For nausea and vomiting use only clear liquids such as: tea, soda, bouillon until nausea subsides, then gradually increase diet as tolerated. * If you have any concerns or questions, call your surgeon's office. If physician is unavailable and it is an emergency, call 911 or go to the nearest emergency room. . Diet Recommendations Home Diet: no limitations Procedures Procedures Performed: Right Extracorporeal Shock Wave Lithotripsy Pending Studies Studies pending at discharge: no Medical Emergencies . Who to Call and When: Medical Emergencies: If at any time you feel your situation is an emergency, please call 911 immediately. . Non-Emergent Contact Non-Emergency issues call your: Urologist Call Non-Emergent contact if: you have a fever, temperature is above 101.5, your pain is not controlled, your pain is worsening . . "Provider Documentation" section prepared by Dennis Hamm. . [place] Drug Monitoring Program Search Results: patient reviewed within database, no issues identified
--- NOTE | 2017-03-29 12:47 | [facility] Operative Report ---
Operative Report Operative Date Mar 29, 2017. Pre-Operative Diagnosis Right ureteric stone Post-Operative Diagnosis same as preop Procedure(s) Performed Right Extracorporeal Shock Wave Lithotripsy Surgeon Dr. Conrad Figure Model Surgeon(s) none Estimated Blood Loss 0ml Findings Right distal ureteral stone Specimens none per surgeon Drains none Anesthesia Gen. Complication(s) None Disposition Recovery Room / PACU (stable) Indications Symptomatically ureteral stone Description of Procedure The patient was identified in the preoperative holding area, appropriate informed consent was reviewed and completed and the patient was transported to the operating suite. Upon arrival appropriate preoperative antibiotics were administered and general anesthesia induced. The patient was placed in supine position and the stone was localized under fluoroscopy. A total of 3000 shocks were delivered to the stone. There appeared to be good fragmentation of the stone. Details of this procedure can be found on the [facility] information sheet. At the conclusion of the case the patient was extubated and taken to the PACU in stable condition. There were no complications. I attest to the content of the Intraoperative Record and any orders documented therein. Any exceptions are noted below.
[2017-03-29 13:39] VITALS: TEMP 37.3
[2017-03-29 14:10] VITALS: BP 116/80; PULSE 75; O2SAT 99
--- NOTE | 2017-03-29 14:24 | Anesthesia Progress Nt - [facility] ---
Anesthesia Post Op Note Date & Time Mar 29, 2017 at 14:24 Vital Signs Pain Intensity: 0 Vital Signs Past 12 Hours Date Time Temp Pulse Resp B/P (MAP) Pulse Ox O2 Delivery O2 Flow Rate FiO2 03/29/17 14:10 75 20 116/80 (92) 99 Room Air 03/29/17 13:39 37.3 70 16 109/73 (85) 98 Room Air 03/29/17 13:36 123/79 03/29/17 13:34 37.3 73 16 116/77 99 Room Air 03/29/17 13:32 68 28 99 03/29/17 13:32 69 28 03/29/17 13:31 116/77 03/29/17 13:27 68 18 03/29/17 13:27 69 18 100 03/29/17 13:26 118/72 03/29/17 13:23 70 16 03/29/17 13:23 72 16 100 03/29/17 13:21 111/73 03/29/17 13:18 64 22 100 03/29/17 13:18 65 22 03/29/17 13:16 113/87 03/29/17 13:13 71 20 03/29/17 13:13 71 20 100 03/29/17 13:11 112/72 03/29/17 13:09 111/68 03/29/17 13:08 36.8 72 12 111/68 100 Mask 6 03/29/17 10:50 37.1 69 16 115/73 (87) 97 Room Air Notes Mental Status: alert / awake / arousable, participated in evaluation Pt Amnestic to Procedure: Yes Nausea / Vomiting: adequately controlled Pain: adequately controlled Airway Patency, RR, SpO2: stable & adequate BP & HR: stable & adequate Hydration State: stable & adequate Anesthetic Complications: no major complications apparent
== END | disposition home or self-care (01) ==
LOC: X.SURG 10:23
PROVIDERS: ATTEND Urology
DX: N20.1 Calculus of ureter (principal); Z88.0 Allergy status to penicillin; Z88.1 Allergy status to other antibiotic agents; Z90.89 Acquired absence of other organs; Z98.890 Other specified postprocedural states; Z98.818 Other dental procedure status

== ENCOUNTER 2017-04-13 17:50 | Emergency (ER) | payer SELFPAY ==
[~2017-04-13] VITALS: Ht 157.5 cm; Wt 70.0 kg
[~2017-04-13 17:50] MED LIST changes: -ACETAMINOPHEN 325 MG TAB PO PRN; -ATROPINE SULFATE 0.1 MG/ML 5ML SYR IV PRN; -CIPROFLOXACIN / D5W 400 MG IV SCH; -DEXAMETHASONE SOD INJ 4 MG/ML VIAL ONE; -FENTANYL CITRATE INJ 50 MCG/1 ML 2 ML VIAL IV PRN; -FENTANYL CITRATE INJ 50 MCG/1 ML 2 ML VIAL ONE; -HYDROCODONE/ACETAMOPHEN 5/325MG TAB PO PRN; -LACTATED RINGER'S 1000ML 1,000 ML IV SCH; -LIDOCAINE HCL 2% 2 ML VIAL (20MG/ML) ONE; -MIDAZOLAM HCL 1 MG/ML 2ML VIAL ONE; -ONDANSETRON INJ 2 MG/ML 2 ML VIAL IV PRN; -ONDANSETRON INJ 2 MG/ML 2 ML VIAL ONE; -PROPOFOL IV EMULSION 10 MG/ML 20 ML VIAL IV ONE; -SODIUM CHLORIDE 0.9% 1000ML 1,000 ML IV SCH
[2017-04-13 18:04] VITALS: Ht 157.5 cm; Wt 70.0 kg
[2017-04-13] MEDS ORDERED: IBUPROFEN 600 MG TAB PO STA (18:31)
--- NOTE | 2017-04-13 19:05 | DIAGNOSTIC IMAGING REPORT ---
R ANKLE MIN 3 VIEWS ROUTINE CLINICAL HISTORY: 21 years-old Female presenting with fall, inversion, swelling/bruising dorso-lateral foot, eval fx. TECHNIQUE: Frontal, mortise, and lateral views of the right ankle were obtained. COMPARISON: None. FINDINGS: Ankle mortise intact. No significant soft tissue swelling. No acute fracture or malalignment. No degenerative change. IMPRESSION: No acute osseous injury of the right ankle. Electronically signed by: Vincent Nagy M.D. 04/13/2017 7:04 PM Dictated Date/Time: 04/13/2017 7:03 PM
--- NOTE | 2017-04-13 19:07 | DIAGNOSTIC IMAGING REPORT ---
R FOOT MIN 3 VIEWS ROUTINE CLINICAL HISTORY: 21 years-old Female presenting with fall, inversion, swelling/bruising dorso-lateral foot, eval fx. TECHNIQUE: Frontal, oblique, and lateral views of the right foot were obtained. COMPARISON: None. FINDINGS: Accessory navicular noted. No acute fracture or malalignment. No soft tissue swelling. No degenerative change. IMPRESSION: No acute osseous injury of the right foot. Electronically signed by: Vincent Nagy M.D. 04/13/2017 7:06 PM Dictated Date/Time: 04/13/2017 7:04 PM
--- NOTE | 2017-04-13 19:37 | EMERGENCY ROOM VISIT NOTE ---
ED Visit Note First contact with patient: 18:12 Chief Complaint: Right foot and Ankle Injury History of Present Illness: This patient is a 21-year-old female who presents to the Emergency Department by private vehicle for evaluation of their right foot and ankle injury. Patient states that they injured the ankle approximately 3 hours ago, she states she was walking down the stairs, slipped on the last step and twisted her foot and ankle. They report throbbing pain over the dorsal lateral aspect of the foot and lateral aspect of the ankle after inversion of the foot and ankle. Pain is worse with any attempts to place weight on the foot. She states she has not been able to walk on the foot since the injury due to pain. They deny any numbness, but states it has been feeling cold and tingling. They deny any pain extending into the affected knee or hip. Patient reports no previous fractures of the affected foot or ankle, but states that she has sprained the ankle 4 times in the past. Patient rates pain as throbbing current discomfort as a 5/10. Patient has tried no medications for their pain. Patient denies any associated injuries, states she did not hit her head or have loss of consciousness, denies back pain, neck pain, abdominal pain, chest pain, shortness of breath, dizziness or syncope. Medications: Reviewed in chart Allergies: Reviewed in chart PMH: History of kidney stones SHx: Lives at home. Denies tobacco use. ROS: All pertinent positive and negative review of systems are appropriately documented in the History of Present Illness. Physical Exam: VITAL SIGNS - Vital signs and nursing notes were reviewed. GENERAL - Pleasant and cooperative, no acute distress but in noticeable discomfort throughout the exam. MUSCULOSKELETAL -the right foot is noted to have some mild swelling and ecchymosis over the dorsolateral aspect of the foot, very tender to palpation. Increased pain with squeezing the foot. There is mild tenderness to palpation of the right lateral malleolus of the ankle to palpation. Pain is worsened with any range of motion of the foot. She is able to wiggle her toes. No tenderness extending the leg. NEUROLOGIC/VASCULAR - Neurovascularly intact distally with + 2 dorsalis pedis and posterior tibialis pulses palpated bilaterally. Brisk cap refill. Normal sensation to light and sharp touch appreciated distally. Imaging: R FOOT MIN 3 VIEWS ROUTINE CLINICAL HISTORY: 21 years-old Female presenting with fall, inversion, swelling/bruising dorso-lateral foot, eval fx. TECHNIQUE: Frontal, oblique, and lateral views of the right foot were obtained. COMPARISON: None. FINDINGS: Accessory navicular noted. No acute fracture or malalignment. No soft tissue swelling. No degenerative change. IMPRESSION: No acute osseous injury of the right foot. ----- R ANKLE MIN 3 VIEWS ROUTINE CLINICAL HISTORY: 21 years-old Female presenting with fall, inversion, swelling/bruising dorso-lateral foot, eval fx. TECHNIQUE: Frontal, mortise, and lateral views of the right ankle were obtained. COMPARISON: None. FINDINGS: Ankle mortise intact. No significant soft tissue swelling. No acute fracture or malalignment. No degenerative change. IMPRESSION: No acute osseous injury of the right ankle. ED Course: Patient was seen and evaluated by myself. Differential diagnosis includes sprain/strain, contusion, hematoma, fracture, dislocation. Patient was provided an ice pack for comfort. Patient was given Motrin for their complaint of pain. X-rays were obtained of the affected foot and ankle. Imaging results as above, no acute fractures. Images were discussed and reviewed with the patient who acknowledges understanding. Patient was provided a Gel Ankle Splint and Crutches for their comfort. Patient educated on worrisome symptoms for return visit to the emergency department. Patient with follow-up with their primary care provided or the orthopedic surgeon in 4-5 days if their symptoms are not improving. Patient discharged to home in good condition. Problem List Medical Problems: (1) UTI (urinary tract infection) Status: Resolved Current/Historical Medications Scheduled Control Pills ( Control Pills), 1 TAB PO DAILY Tamsulosin Hcl (Flomax), 0.4 MG PO HS Scheduled PRN Hydrocodone/Acetaminophen 5MG/325MG ([place] 5MG/325MG), 1 TABLET PO Q6H PRN for Pain Ibuprofen Tab (Motrin), 600 MG PO TID PRN for Pain Oxybutynin Chloride (Ditropan), 5 MG PO Q8 PRN for BLADDER SPASMS Allergies Coded Allergies: Ciprofloxacin (Verified Allergy, Mild, RASH, 03/29/17) Redness to arm. Pineapple (Verified Allergy, Mild, TONGUE ITCHING/BURNING, 03/29/17) Amoxicillin (Verified Allergy, Unknown, HIVES, 03/29/17) Gold (Verified Allergy, Unknown, SKIN IRRITATION AND SKIN SWELLING, ) Latex (Verified Allergy, Unknown, Rash/swelling, 03/29/17) Penicillins (Verified Allergy, Unknown, HIVES, 03/29/17) Doxycycline (Verified Adverse Reaction, Intermediate, N/V, 03/29/17) Vital Signs Date Time Temp Pulse Resp B/P (MAP) Pulse Ox O2 Delivery O2 Flow Rate FiO2 04/13/17 19:47 68 16 119/78 99 04/13/17 18:04 Room Air Medications Administered Medications (Trade) Dose Ordered Sig/Marielena Route Start Time Stop Time Status Last Admin Dose Admin Ibuprofen (Motrin Tab) 600 mg NOW STAT PO 04/13/17 18:31 04/13/17 18:33 DC 04/13/17 18:31 600 MG Departure Information Impression Primary Impression: Contusion of right foot, initial encounter Additional Impression: Right ankle sprain Dispostion Home / Self-Care Condition GOOD Referrals Suhail Coppola M.D. (MEDICAL) (PCP) Manny Llanes D.O. Patient Instructions ED Contusion Foot, ED Crutch Walking, ED Sprain Ankle, [facility] Additional Instructions Discharge Instructions: You have been treated in the Emergency Department for your foot and ankle injury. For pain control, you can use the following [id number] medicines (if >12 yo): - Regular strength (325mg/tab) Tylenol (acetaminophen) 2 tabs every 4-6 hours as needed. Do not exceed 10 tablets in a 24 hour period. Avoid taking more than 3000 mg of Tylenol per day. This includes any other sources of acetaminophen you may take on a regular basis. - Regular strength (200 mg/tab) Advil (ibuprofen) 3 tabs every 6-8 hours as needed. Do not exceed a dose of 2400 mg per day. -For best results, you may alternate between Tylenol and Advil every 3-4 hours. Keep the ankle elevated as much as possible and apply ice to the area for the next 3 days to help reduce pain and swelling. Please use the crutches and ankle splint until you are able to walk on the foot without pain. You can continue to use the ankle splint for the next 1-2 weeks to help with ankle stability. Follow-up with your primary care provider or Orthopedic Surgeon in 4-5 days if your symptoms are not improving despite the treatment plan outlined above. Return to the Emergency Department if your current symptoms worsen despite treatment course outlined above, or if you develop any of the following symptoms : Severe worsening pain or new discoloration or numbness or tingling of the foot. Work Instructions Return To Work: 1 day Problem Qualifiers Additional Impression: Right ankle sprain Encounter type: initial encounter Involved ligament of ankle: unspecified ligament Qualified Codes: S93.401A - Sprain of unspecified ligament of right ankle, initial encounter
[2017-04-13 19:47] VITALS: BP 119/78; PULSE 68; O2SAT 99
== END 2017-04-13 19:49 | disposition home or self-care (01) ==
LOC: C.EDB 17:51 → C.EDD 19:49
DX: S90.31XA Contusion of right foot, initial encounter (principal); S93.401A Sprain of unspecified ligament of right ankle, initial encounter; X50.9XXA Other and unspecified overexertion or strenuous movements or postures, initial encounter

== ENCOUNTER → 2017-05-07 | Outpatient (CLI) | payer OTHER ==
[~2017-05-07] MED LIST changes: -PHEN-876 PO
--- NOTE | 2017-05-07 15:33 | DIAGNOSTIC IMAGING REPORT ---
(RENAL)RETROPERITON COMP HISTORY: Nephrocalcinosis NEPHROLETHIASIS COMPARISON: 03/12/2017 FINDINGS: Right kidney: Maximum dimension 9.6 cm. No significant hydronephrosis. 2 cm mid right renal cyst. Normal corticomedullary differentiation and cortical thickness. Left kidney: Maximum dimension 10.5 cm. No evidence for hydronephrosis. Normal corticomedullary differentiation and cortical thickness. Bladder: No bladder wall thickening. The bilateral ureteral jets were identified. IMPRESSION: 1. No evidence renal hydronephrosis. 2. 2 cm mid pole right renal cyst. 3. Study is improved as compared to the prior exam. The above report was generated using voice recognition software. It may contain grammatical, syntax or spelling errors. Electronically signed by: Alin Goodwin M.D. 05/07/2017 3:31 PM Dictated Date/Time: 05/07/2017 3:29 PM
== END | disposition home or self-care (01) ==
LOC: C.ULTR 14:56
PROVIDERS: ATTEND Urology
DX: N20.0 Calculus of kidney (principal)

== ENCOUNTER → 2017-05-15 | Outpatient (CLI) | payer OTHER | END | disposition home or self-care (01) | LOC: C.LABSPEC 16:19 | PROVIDERS: ATTEND Physician Assistant | DX: Z30.9 Encounter for contraceptive management, unspecified (principal) ==

== ENCOUNTER → 2017-06-07 | Outpatient (CLI) | payer OTHER ==
[2017-06-07 13:30] LABS: BASO % 0.4 %; BASO ABS # 0.03 K/uL (0-0.2); EOS ABS # 0.14 K/uL (0-0.5); HEMATOCRIT 42.9 % (37-47); HEMOGLOBIN 14.4 g/dL (12.0-16.0); IG# 0.04 K/uL (0.00-0.02); LYMPH % 31.9 %; LYMPH ABS # 2.26 K/uL (1.2-3.4); MEAN CELL VOLUME 85.3 fL (80-100); MEAN CORPUSCULAR HEMOGLOBIN 28.6 pg (25-34); MEAN CORPUSCULAR HGB CONC 33.6 g/dl (32-36); MEAN PLATELET VOLUME 9.8 fL (7.4-10.4); MONO % 7.8 %; MONO ABS # 0.55 K/uL (0.11-0.59); NEUT % 57.3 %; NEUT ABS # 4.07 K/uL (1.4-6.5); PLATELET COUNT 299 K/uL (130-400); RED CELL DISTRIBUTION WIDTH CV 12.4 % (11.5-14.5); RED CELL DISTRIBUTION WIDTH SD 38.3 fL (36.4-46.3); WHITE BLOOD COUNT 7.09 K/uL (4.8-10.8)
[2017-06-10 15:46] LABS: EBV EARLY ANTIGEN AB < 9.00 U/ML
== END | disposition home or self-care (01) ==
LOC: C.LABBC 09:25
PROVIDERS: ATTEND Physician Assistant Medical
DX: R50.9 Fever, unspecified (principal)

== ENCOUNTER → 2017-06-26 | Outpatient (CLI) | payer OTHER ==
[2017-06-26 16:45] LABS: BASO % 0.5 %; BASO ABS # 0.04 K/uL (0-0.2); EOS % 1.9 %; EOS ABS # 0.15 K/uL (0-0.5); HEMOGLOBIN 14.2 g/dL (12.0-16.0); IG# 0.02 K/uL (0.00-0.02); LYMPH % 43.8 %; MEAN CELL VOLUME 84.2 fL (80-100); MEAN CORPUSCULAR HEMOGLOBIN 28.5 pg (25-34); MEAN CORPUSCULAR HGB CONC 33.8 g/dl (32-36); MEAN PLATELET VOLUME 9.3 fL (7.4-10.4); MONO % 5.8 %; MONO ABS # 0.45 K/uL (0.11-0.59); NEUT % 47.7 %; NEUT ABS # 3.71 K/uL (1.4-6.5); PLATELET COUNT 325 K/uL (130-400); RED CELL DISTRIBUTION WIDTH CV 12.2 % (11.5-14.5); WHITE BLOOD COUNT 7.77 K/uL (4.8-10.8)
[2017-06-29 14:37] LABS: ANA SCREEN TC 249X NEGATIVE (NEGATIVE)
== END | disposition home or self-care (01) ==
LOC: C.LAB 15:48
PROVIDERS: ATTEND Nurse Practitioner Family
DX: J32.9 Chronic sinusitis, unspecified (principal); R50.9 Fever, unspecified; R21 Rash and other nonspecific skin eruption

== ENCOUNTER → 2017-07-12 | Outpatient (CLI) | payer OTHER ==
--- NOTE | 2017-07-12 15:24 | DIAGNOSTIC IMAGING REPORT ---
CT SINUSES-MAXILLOFACIAL W/O CLINICAL HISTORY: J32.9 Chronic sinusitis R50.9 Fever R21 Facial rash COMPARISON STUDY: None. TECHNIQUE: CT scan of the paranasal sinuses was performed in the axial plane. Coronal reconstructed images were obtained and reviewed. A dose lowering technique was utilized adhering to the principles of ALARA. CT DOSE: 577.21 mGy.cm FINDINGS: No orbital masses are visualized in this noncontrast study. There is no hydrocephalus. The mastoid air cells are symmetrically aerated. The middle ear cavities appear well aerated. The frontal, ethmoid, maxillary, and sphenoid sinuses appear clear. There is partial pneumatization of both middle turbinates. The ethmoid notches are protected. The olfactory grooves measure 3.5 mm in depth. The sphenoid and frontal recesses are patent. The ostiomeatal units are patent bilaterally. IMPRESSION: No evidence of acute or chronic sinusitis. The ostiomeatal units are patent bilaterally. Electronically signed by: Ayan Grover M.D. 07/12/2017 3:23 PM Dictated Date/Time: 07/12/2017 3:19 PM
== END | disposition home or self-care (01) ==
LOC: C.CTS 15:06
PROVIDERS: ATTEND Nurse Practitioner Family
DX: J32.9 Chronic sinusitis, unspecified (principal); R50.9 Fever, unspecified; R21 Rash and other nonspecific skin eruption

== ENCOUNTER 2017-08-13 13:16 | Emergency (ER) | payer OTHER ==
[~2017-08-13] VITALS: Ht 157.5 cm; Wt 72.2 kg
[2017-08-13 13:18] VITALS: TEMP 36.8; Ht 157.5 cm; Wt 72.2 kg
[2017-08-13] MEDS ORDERED: ONDANSETRON 4MG OD TAB PO STA (13:33)
[2017-08-13] MEDS ORDERED: IBUPROFEN 200 MG TAB PO STA (13:33)
[2017-08-13] MEDS ORDERED: ACETAMINOPHEN 325 MG TAB PO STA (13:33)
[2017-08-13 14:14] LABS: ISTAT CREATININE 0.7 mg/dl (0.6-1.3); ISTAT IONIZED CALCIUM 1.18 mmol/l (1.12-1.32); ISTAT POTASSIUM 3.7 mEq/L (3.3-5.0)
[2017-08-13 14:26] VITALS: BP 116/69; PULSE 77; O2SAT 100
--- NOTE | 2017-08-13 14:30 | EMERGENCY ROOM VISIT NOTE ---
History Report prepared by Марина: Christiano Young Under the Supervision of: Dr. Cornell Martinez M.D. First contact with patient: 13:28 Chief Complaint: URINARY SYMPTOMS Stated Complaint: BLOATING, SWELLING, FREQUENT PEEING, BACK PAIN History of Present Illness The patient is a 21 year old white female with a past medical history of UTI and kidney stone who presents to the ED with a cc of constant abdominal bloating beginning a few days ago. Positive increased urinary frequency. Patient believes she likely has a UTI. She reports multiple episodes of vomiting throughout the day four days ago. Her last normal bowel movement was this morning. Negative fevers, or chills. She has required lithotripsy for her most recent kidney stone. No drug or tobacco use. Source of History: patient Onset: A few days ago Position: abdomen Quality: other (bloating) Timing: constant Associated Symptoms: + urinary symptoms (increased frequency), No fevers, No chills Review of Systems See HPI for pertinent positives and negatives. A total of ten systems were reviewed and were otherwise negative. Past Medical & Surgical Medical Problems: (1) UTI (urinary tract infection) Family History Cancer Diabetes mellitus FH: heart disease FHx: lung disease Hypertension Social History Smoking Status: Never Smoker Alcohol Use: none Drug Use: none Marital Status: in relationship Housing Status: lives with significant other Occupation Status: student Current/Historical Medications Scheduled Control Pills ( Control Pills), 1 TAB PO DAILY Tamsulosin Hcl (Flomax), 0.4 MG PO HS Scheduled PRN Hydrocodone/Acetaminophen 5MG/325MG ([place] 5MG/325MG), 1 TABLET PO Q6H PRN for Pain Ibuprofen Tab (Motrin), 600 MG PO TID PRN for Pain Ondansetron Hcl (Zofran), 4 MG PO Q8H PRN for Nausea Oxybutynin Chloride (Ditropan), 5 MG PO Q8 PRN for BLADDER SPASMS Allergies Coded Allergies: Ciprofloxacin (Verified Allergy, Mild, RASH, 03/29/17) Redness to arm. Pineapple (Verified Allergy, Mild, TONGUE ITCHING/BURNING, 03/29/17) Amoxicillin (Verified Allergy, Unknown, HIVES, 03/29/17) Gold (Verified Allergy, Unknown, SKIN IRRITATION AND SKIN SWELLING, ) Latex (Verified Allergy, Unknown, Rash/swelling, 03/29/17) Penicillins (Verified Allergy, Unknown, HIVES, 03/29/17) Doxycycline (Verified Adverse Reaction, Intermediate, N/V, 03/29/17) Physical Exam Vital Signs Date Time Temp Pulse Resp B/P (MAP) Pulse Ox O2 Delivery O2 Flow Rate FiO2 08/13/17 14:26 77 18 116/69 100 Room Air 08/13/17 13:18 36.8 76 16 131/88 100 Room Air Physical Exam GENERAL: Awake, alert, well-appearing, NAD HENT: Normocephalic, atraumatic. EYES: Normal conjunctiva. Sclera non-icteric. PERRL. No anisocoria. NECK: Supple. No nuchal rigidity. FROM. RESPIRATORY: CTAB, no rhonchi, wheezing, crackles CARDIAC: RRR, no MRG ABDOMEN: Soft, BS+. No CVA TTP. No abdominal discomfort. Non-surgical abdomen. MSK: No chest wall TTP, no LE edema NEURO: GCS 15, CN 2-12 intact, moves all 4s on command SKIN: No rash or jaundice noted. Medical Decision & Procedures Laboratory Results Test 08/13/17 13:41 08/13/17 13:58 Urine Color YELLOW Urine Appearance CLEAR (CLEAR) Urine pH 6.5 (4.5-7.5) Urine Specific [place] 1.028 (1.000-1.030) Urine Protein NEG (NEG) Urine Glucose (UA) NEG (NEG) Urine Ketones TRACE (NEG) Urine Occult Blood NEG (NEG) Urine Nitrite NEG (NEG) Urine Bilirubin NEG (NEG) Urine Urobilinogen NEG (NEG) Urine Leukocyte Esterase SMALL (NEG) Urine WBC (Auto) 1-5 /hpf (0-5) Urine RBC (Auto) 0-4 /hpf (0-4) Urine Hyaline Casts (Auto) 1-5 /lpf (0-5) Urine Epithelial Cells (Auto) >30 /lpf (0-5) Urine Bacteria (Auto) NEG (NEG) Urine Test NEG (NEG) Bedside Hemoglobin 14.3 g/dl (12.0-16.0) Bedside Hematocrit 42 % (37-47) Bedside Sodium 139 mEq/L (135-144) Bedside Potassium 3.7 mEq/L (3.3-5.0) Bedside Chloride 100 mEq/L (101-112) Bedside Total CO2 27 mEq/l (24-31) Anion Gap 18.0 mmol/L (16-25) Bedside Blood Urea Nitrogen 8 mg/dl (7-18) Bedside Creatinine 0.7 mg/dl (0.6-1.3) Bedside Glucose (other) 93 mg/dl (70-99) Bedside Ionized Calcium ([place]) 1.18 mmol/l (1.12-1.32) Laboratory results reviewed by me Medications Administered Medications (Trade) Dose Ordered Sig/Marielena Route Start Time Stop Time Status Last Admin Dose Admin Ondansetron HCl (Zofran Odt) 4 mg NOW STAT PO 08/13/17 13:33 08/13/17 13:35 DC 08/13/17 13:50 4 MG Acetaminophen (Tylenol Tab) 650 mg NOW STAT PO 08/13/17 13:33 08/13/17 13:35 DC 08/13/17 13:49 650 MG Ibuprofen (Advil Tab) 400 mg NOW STAT PO 08/13/17 13:33 08/13/17 13:35 DC 08/13/17 13:50 400 MG ED Course 1329: The patient was evaluated in room B11B. A complete history and physical exam was performed. 1420: I reevaluated the patient. Discussed results and discharge instructions: she verbalized understanding and agreement. The patient is ready for discharge. Medical Decision Nursing notes reviewed. Ancillary studies and prior records reviewed. The patient is a 21 year old white female with a past medical history of UTI and kidney stone who presents to the ED with a cc of constant abdominal bloating beginning a few days ago. Differential diagnosis: Etiologies such as appendicitis, diverticulitis, PUD, biliary pathology, UTI, pancreatitis, obstruction, mesenteric ischemia, aortic pathology, infections, inflammatory bowel disease, renal colic, as well as others were entertained. Patient was seen and evaluated the bedside. Patient does have a history of recurrent UTIs him stating that she was having some lower back discomfort. Patient has no saddle anesthesia, unexpected weight loss, history of cancer, immunosuppressant drugs, IV drug abuse. Patient has a normal neurologic exam and is in her lower extremities. Patient does have a prior history of a right-sided ureteral stent as the patient had an issue of some obstructive uropathy secondary to kidney stones but this is since been retrieved. The patient has no CVA TTP. Patient is afebrile with normal vital signs. Patient did have [id number] BMP completed along with urinalysis and UPT. POC creatinine is 0.7. The patient's electrolytes are fairly unremarkable. The patient has normal kidney function. Patient's urinalysis only shows leuks but without WBCs, nitrates, or bacteria. I did discuss with the patient that we would likely wait for culture and if the screw something would call her for an antibiotic prescription. Patient's urine test negative. Patient had a recent bowel movement and has had no surgeries on the abdomen less likely obstruction. The patient looks and feels well. Patient was deemed suitable for outpatient follow-up and treatment at this time. Patient was given strict follow-up, discharge, and return precautions. All questions were answered. Patient was deemed suitable for outpatient follow-up at this time. Patient agreed with the plan of care and was safely discharged home. Medication Reconcilliation Current Medication List: was personally reviewed by me Blood Pressure Screening Patient's blood pressure: Elevated blood pressure Blood pressure disposition: Elevated BP felt to be situational Impression Primary Impression: Low back pain Scribe Attestation The scribe's documentation has been prepared under my direction and personally reviewed by me in its entirety. I confirm that the note above accurately reflects all work, treatment, procedures, and medical decision making performed by me. Departure Information Dispostion Home / Self-Care Prescriptions Ondansetron Hcl (ZOFRAN) 4 Mg Tab 4 MG PO Q8H Y for Nausea, #12 TAB Prov: Cornell Martinez M.D. 08/13/17 Referrals Liza Barcenas .KINA (PCP) Patient Instructions Exercises Back Lower Back Stretch, Low Back Pain Self Care, My [facility] Additional Instructions Please return to the emergency department if you have worsening or recurrent symptoms not amenable to at-home treatment. Please call for a follow-up appointment with her primary care physician. Please take your medications as prescribed. If you have other concerns and/or complaints please feel free to also call your primary care physician's office or return the ED for further evaluation, management, and treatment. You may take 800 mg Ibuprofen every 6 hours as needed for pain/fever with food unless told by your physician not to take NSAIDs. You may take tylenol 1000 mg every 6 hours as needed for pain/fever unless told by your physician to not take it or have liver problems. You may take motrin and tylenol separately or at the same time. Take your medications as prescribed. You have been examined and treated today on an emergency basis only. This is not a substitute for, or an effort to provide, complete comprehensive medical care. It is impossible to recognize and treat all injuries or illnesses in a single emergency department visit. It is therefore important that you follow up closely with [facility], your PCP, and/or your specialist(s). Call as soon as possible for an appointment. Thank you for your time and consideration. I look forward to speaking with you again soon. Please don't hesitate to call us if you have any questions. Problem Qualifiers Primary Impression: Low back pain Chronicity: acute Back pain laterality: unspecified Sciatica presence: without sciatica Qualified Codes: M54.5 - Low back pain
[2017-08-13] MEDS ORDERED: ONDA4TAB46 PO (14:33)
== END 2017-08-13 15:01 | disposition home or self-care (01) ==
LOC: C.EDB 13:17
DX: R35.0 Frequency of micturition (principal); M54.5 Low back pain; R14.0 Abdominal distension (gaseous); Z79.899 Other long term (current) drug therapy; Z88.8 Allergy status to other drugs, medicaments and biological substances

== ENCOUNTER 2017-09-08 13:26 | Emergency (ER) | payer OTHER ==
[~2017-09-08] VITALS: Ht 157.5 cm; Wt 71.4 kg
[~2017-09-08 13:26] MED LIST changes: +ONDA4TAB46 PO
[2017-09-08 13:32] VITALS: TEMP 37; Ht 157.5 cm; Wt 71.4 kg
[2017-09-08] MEDS ORDERED: AZITHROMYCIN 250 MG TAB PO STA (14:12)
[2017-09-08] MEDS ORDERED: AZITTAB PO (14:13)
--- NOTE | 2017-09-08 14:14 | EMERGENCY ROOM VISIT NOTE ---
History Report prepared by Марина: Christiano Young Under the Supervision of: Dr. Esteban Gomez D.O. First contact with patient: 13:38 Chief Complaint: SORETHROAT Stated Complaint: NECK SWOLLEN GLANDS, DIZZY, SORE THROAT, WHITE PAT History of Present Illness The patient is a 21 year old female who presents to the Emergency Room with complaints of constant sore throat beginning three days ago. She also complains of ear pain, white spots to her tongue ("for a while"), and cervical lymphadenopathy. She had a fever last night as well. The patient has a history of frequent kidney stones. She has a history of thrush and typically gets it 1- 2 times per year. Source of History: patient Onset: Three days ago Position: throat Quality: other (sore) Timing: constant Associated Symptoms: + fevers (yesterday), + lymphadenopathy (cervical) Note: Positive: ear pain, and white spots on tongue. Review of Systems See HPI for pertinent positives & negatives. A total of 10 systems reviewed and were otherwise negative. Past Medical & Surgical Medical Problems: (1) Abdominal pain (2) No Known Active Medical Problems (3) UTI (urinary tract infection) (4) UTI (urinary tract infection) Family History Cancer Diabetes mellitus FH: heart disease FHx: lung disease Hypertension Social History Smoking Status: Never Smoker Alcohol Use: none Drug Use: none Marital Status: in relationship Housing Status: lives with significant other Occupation Status: student Current/Historical Medications Scheduled Control Pills ( Control Pills), 1 TAB PO DAILY Tamsulosin Hcl (Flomax), 0.4 MG PO HS Scheduled PRN Hydrocodone/Acetaminophen 5MG/325MG ([place] 5MG/325MG), 1 TABLET PO Q6H PRN for Pain Ibuprofen Tab (Motrin), 600 MG PO TID PRN for Pain Ondansetron Hcl (Zofran), 4 MG PO Q8H PRN for Nausea Oxybutynin Chloride (Ditropan), 5 MG PO Q8 PRN for BLADDER SPASMS Allergies Coded Allergies: Ciprofloxacin (Verified Allergy, Mild, RASH, 03/29/17) Redness to arm. Pineapple (Verified Allergy, Mild, TONGUE ITCHING/BURNING, 03/29/17) Amoxicillin (Verified Allergy, Unknown, HIVES, 03/29/17) Gold (Verified Allergy, Unknown, SKIN IRRITATION AND SKIN SWELLING, ) Latex (Verified Allergy, Unknown, Rash/swelling, 03/29/17) Penicillins (Verified Allergy, Unknown, HIVES, 03/29/17) Doxycycline (Verified Adverse Reaction, Intermediate, N/V, 03/29/17) Physical Exam Vital Signs Date Time Temp Pulse Resp B/P (MAP) Pulse Ox O2 Delivery O2 Flow Rate FiO2 09/08/17 13:52 96 Room Air 09/08/17 13:32 37.0 102 16 119/85 100 Room Air Physical Exam CONSTITUTIONAL/VITAL SIGNS: Reviewed / noted above. GENERAL: Non-toxic in appearance. INTEGUMENTARY: Warm, dry, and [place]. HEAD: Normocephalic. EYES: without scleral icterus or trauma. ENT/OROPHARYNX: Posterior oropharyngeal erythema. LYMPHADENOPATHY/NECK: Is supple without meningismus. Anterior cervical lymphadenopathy. Tender to palpation. RESPIRATORY: Lungs clear and equal. CARDIOVASCULAR: Regular rate and rhythm. GI/ABDOMEN: Soft and nontender. No organomegaly or pulsatile mass. No rebound or guarding. Normal bowel sounds. EXTREMITIES: Warm and well perfused. BACK: No CVA tenderness. NEUROLOGICAL: Intact without focal deficits. PSYCHIATRIC: normal affect. MUSCULOSKELETAL: Normally developed with good muscle tone. Medical Decision & Procedures ED Course 1347: Previous medical records were reviewed. The patient was evaluated in room B6. A complete history and physical examination was performed. 1355: On reevaluation, the patient is resting comfortably. I discussed the results and findings with the patient. She verbalized agreement of the treatment plan. She was discharged home. Medical Decision Differential diagnosis: Etiologies such as viral syndrome, tonsillitis, streptococcal pharyngitis, mononucleosis, peritonsillar abscess, retropharyngeal abscess, otitis, pneumonia , influenza, as well as others were entertained. This is a 21-year-old female who presents to the ED with a chief complaint of a sore throat. The patient states that her symptoms started 3 days ago. She reports some swelling in the anterior portion of her neck. Her vital signs are stable. She is afebrile. She has had tonsillectomy in the past. Evaluation of the patient reveals some posterior pharyngeal erythema as well as anterior lymphadenopathy. The patient is otherwise not septic or toxic. No impending airway obstruction. The patient was started on Zithromax. She is felt to be stable for discharge. Medication Reconcilliation Current Medication List: was personally reviewed by me Blood Pressure Screening Patient's blood pressure: Normal blood pressure Blood pressure disposition: Did not require urgent referral Impression Primary Impression: Acute pharyngitis Scribe Attestation The scribe's documentation has been prepared under my direction and personally reviewed by me in its entirety. I confirm that the note above accurately reflects all work, treatment, procedures, and medical decision making performed by me. Departure Information Dispostion Home / Self-Care Prescriptions Azithromycin (ZITHROMAX Z-SAJAN) 250 Mg Tab 0 PO UD, #1 PKT 2 TABS DAY 1, THEN 1 TAB DAILY FOR 4 DAYS Prov: Esteban Gomez D.O. 09/08/17 Referrals No Doctor, Assigned (PCP) Patient Instructions My [facility] Additional Instructions Zithromax as prescribed. Take Tylenol or Motrin as needed for discomfort.
[2017-09-08 14:20] VITALS: BP 131/77; PULSE 95; O2SAT 97
[2017-09-08] MEDS ORDERED: MULTTAB58 PO (14:27)
== END 2017-09-08 14:38 | disposition home or self-care (01) ==
LOC: C.EDB 13:28
DX: J02.9 Acute pharyngitis, unspecified (principal); Z90.89 Acquired absence of other organs; Z79.3 Long term (current) use of hormonal contraceptives; Z79.899 Other long term (current) drug therapy; Z88.0 Allergy status to penicillin; Z88.1 Allergy status to other antibiotic agents; Z91.048 Other nonmedicinal substance allergy status; Z91.018 Allergy to other foods